=== PATIENT | female | born 1960 ===

== ENCOUNTER 2021-07-18 10:34 | Outpatient (CLI) | payer OTHER | END 2021-07-18 10:50 | disposition home or self-care (01) | LOC: EDBD 10:34 → RAD 10:34 | PROVIDERS: ATTEND Internal Medicine Pulmonary Disease | DX: E03.9 Hypothyroidism, unspecified (principal); E11.9 Type 2 diabetes mellitus without complications; G43.109 Migraine with aura, not intractable, without status migrainosus; M79.7 Fibromyalgia; Q21.1 Atrial septal defect ==

== ENCOUNTER 2022-11-20 10:37 | Outpatient (CLI) | payer OTHER | END 2022-11-20 10:44 | disposition home or self-care (01) | LOC: RX STUDY 10:37 | PROVIDERS: ATTEND Internal Medicine Pulmonary Disease | DX: J98.6 Disorders of diaphragm (principal); I48.91 Unspecified atrial fibrillation ==